=== PATIENT | male | born 1985 | race Caucasian/White ===

== ENCOUNTER 2020-08-21 19:52 | Emergency (ER) | payer BC, SELFPAY ==
[2020-08-21 19:53] VITALS: BP 145/81; PULSE 89; RESP 15; TEMP 36.7; O2SAT 98; BMI 32.1
--- NOTE | 2020-08-21 20:27 | HMH.EDWNDL ---
ED Disposition Clinical Impression: Laceration of finger Qualifiers: Encounter type: initial encounter Finger: index finger Damage to nail status: without damage Foreign body presence: without foreign body Laterality: left Qualified Code(s): S61.211A - Laceration without foreign body of left index finger without damage to nail, initial encounter Disposition: Home, Self-Care Condition on Discharge: Good Instructions: DI for Laceration Repair Additional Instructions: suture out 10 days and recheck if needed Referrals: PCP,No [Primary Care Provider] - - Critical Care Critical Care Time: No Attestation: On 08/21/20, the high probability of a clinically significant, sudden or life threatening deterioration of the following system(s) required my full and direct attention, intervention and personal management. The time I documented below is in addition to time spent performing reported procedures but includes the following listed in this critical care notation. Medical Decision Making - Medical Records Medical records reviewed: Yes: I reviewed the patient's medical records. - Ricardo Inquiry Pt receiving controlled substance: No Vital Signs: 08/21/20 19:53 Temperature 98.0 F Temperature Source Oral Pulse Rate [Left Brachial] 89 Respiratory Rate 15 Blood Pressure [Left Arm] 145/81 H Blood Pressure Mean [Left Arm] 102 Blood Pressure Source [Left Arm] Automatic Cuff Blood Pressure Position [Left Arm] Sitting 02 Sat by Pulse Oximetry 98 Oxygen Delivery Method Room Air Orders (Tests/Meds): ED MEDICATIONS Discontinued Medications Generic Name Dose Route Start Last Admin Trade Name Freq PRN Reason Stop Dose Admin Lidocaine HCl 20 ml 08/21/20 20:15 Lidocaine 1% 20ml Mdv SQ 08/21/20 20:16 ONCE ONE Wound/Laceration HPI - General Chief Complaint: Wound/Laceration Stated Complaint: Laceration Time Seen by Provider: 08/21/20 20:27 Mode of Arrival: Ambulatory Source of Information: Patient, Spouse, Medical Record Limitations: No Limitations Description of Symptoms (Recalled from ER Triage Doc. by RN): Laceration left 2nd finger - History of Present Illness HPI narrative: lac to lt seond finger Onset (ago): hour(s) Extremity Location: Left: hand Place: home Patient tetanus UTD: Yes Context: sharp object use Associated symptoms: none - Related Data Allergies Allergy/AdvReac Type Severity Reaction Status Date / Time No Known Drug Allergies Allergy Verified 08/21/20 20:07 [facility] History - Hepatitis A Screen Drug use history?: No High risk sexual behaviors?: No History of sexually transmitted infection?: No Currently employed?: No Childcare worker?: No Do you have indoor plumbing?: Yes Do you have electricity?: Yes Attestation statement:: This patient has been screened for Hepatitis A risk factors. I have reviewed the patient's past medical history: Yes Amputation: No Fractures: Yes - Social History Alcohol Intake: never Occupational Status: employed Household Members: spouse ROS Obtained: Yes All systems reviewed & no additional complaints - Constitutional Constitutional: Denies fever(s) - Eyes Eyes: Denies change in vision - ENT Ears, Nose, Mouth, and Throat: Denies sore throat - Cardiovascular Cardiovascular: Denies chest pain - Respiratory Respiratory: Denies dyspnea - Genitourinary Female Genitourinary: Denies hematuria - Musculoskeletal Musculoskeletal: Denies joint swelling - Integumentary/Breasts Skin/Breast: Denies rash - Neurologic Neurologic: Denies seizure-like activity Physical Exam - General General appearance: alert - Head Head exam: normocephalic - Eye Eye exam: Present: PERRL, EOMI - ENT ENT exam: Present: mucous membranes moist - Neck Neck exam: Present: trachea midline - Respiratory Respiratory exam: Absent: respiratory distress - Cardiovascular Cardiovascular exam: Present: regular rate
[2020-08-21 20:38] VITALS: BP 148/78; PULSE 88; RESP 16; TEMP 36.7; O2SAT 98
== END 2020-08-21 20:44 | disposition home or self-care (01) ==
PROVIDERS: Emergency Provider Emergency Medicine
DX: S61.211A Laceration without foreign body of left index finger without damage to nail, initial encounter (principal); W26.9XXA Contact with unspecified sharp object(s), initial encounter; Y92.019 Unspecified place in single-family (private) house as the place of occurrence of the external cause
CPT/HCPCS: 12001; 96372; 99282

== ENCOUNTER → 2023-02-18 10:51 | Outpatient (CLI) | payer BC, SELFPAY ==
[2023-02-18 11:15] LABS: Basophils # 0.1 K/mm3 (0-0.2); Basophils % 1.1 % (0.1-2.0); Eosinophils # 0.2 K/mm3 (0.0-0.4); Eosinophils % 3.2 % (0.1-12.0); Hemoglobin 16.5 g/dL (14.1-18.0); Lymphocytes # 1.8 K/mm3 (0.7-4.5); Lymphocytes % 25.3 % (10-50); Mean Corpuscular HGB Conc 33.6 g/dL (31.8-35.4); Mean Corpuscular Hemoglobin 27.6 pg (27.0-31.2); Mean Corpuscular Volume 82.1 fl (80-94); Mean Platelet Volume 9.4 fl (7.4-10.4); Monocytes # 0.4 K/mm3 (0.1-1.0); Monocytes % 5.4 % (1.7-9.3); Neutrophils # 4.5 K/mm3 (1.8-7.8); Neutrophils % 64.9 % (37.0-80.0); Platelet Count 242 K/mm3 (142-424); Red Blood Count 5.97 M/mm3 (4.60-6.20); Red Cell Distribution Width 13.9 % (11.5-17.5)
[2023-02-18 12:15] LABS: Alanine Aminotransferase 55 U/L (12-78); Albumin Level 4.5 g/dl (3.5-5.0); Albumin/Globulin Ratio 1.7 (1.1-1.8); Alkaline Phosphatase 66 U/L (38-126); Aspartate Amino Transferase 34 U/L (17-59); Bilirubin,Total 0.7 mg/dl (0.2-1.3); Blood Urea Nitrogen 15 mg/dl (9-20); Calcium 9.4 mg/dl (8.4-10.2); Carbon Dioxide 30 mmol/L (22.0-30.0); Chloride 106 mmol/L (98-107); Chol/HDL Ratio 4.8 (1-3.5); Cholesterol 176 mg/dl (140-200); Estimated Glomerular Filt Rate 85 ml/min (>60); GFR (African American) 103 ML/MIN (>60); Globulin 2.6 g/dL (1.3-3.2); Glucose 97 mg/dl (74-100); HDL Cholesterol 37 mg/dl (40-60); Sodium 143 mmol/L (136-145); Total Protein,Serum 7.1 g/dl (6.3-8.2); Triglycerides 102 mg/dl (30-150); VLDL Cholesterol 20 mg/dL (0-40)
[2023-02-18 12:25] LABS: Direct LDL Cholesterol 110.61 mg/dL (100-129)
[2023-02-18 12:46] LABS: Thyroid Stimulating Hormone 1.13 uIU/mL (0.465-4.68)
[2023-02-18 13:05] LABS: Vitamin B12 528 pg/mL (239-931)
== END ==
PROVIDERS: PCP Internal Medicine Adolescent Medicine; Visit Provider Physician Assistant
DX: Z00.00 Encounter for general adult medical examination without abnormal findings (principal); R42 Dizziness and giddiness; E55.9 Vitamin D deficiency, unspecified; E66.9 Obesity, unspecified; Z68.32 Body mass index [BMI] 32.0-32.9, adult; Z83.3 Family history of diabetes mellitus
CPT/HCPCS: 36415; 80053; 80061; 82306; 82607; 83036; 84443; 85025

== ENCOUNTER 2023-03-12 10:37 | Emergency (ER) | payer BC, SELFPAY ==
[2023-03-12] VITALS (11 sets, daily range): BP systolic 118–138; BP diastolic 79–94; PULSE 74–104; RESP 16–18; TEMP 37.1; O2SAT 96–99; BMI 30.1
[2023-03-12 11:46] LABS: Basophils # 0.1 K/mm3 (0-0.2); Basophils % 0.9 % (0.1-2.0); Eosinophils # 0.1 K/mm3 (0.0-0.4); Eosinophils % 1.3 % (0.1-12.0); Hematocrit 46.1 % (42.0-52.0); Lymphocytes # 1.2 K/mm3 (0.7-4.5); Lymphocytes % 16.7 % (10-50); Mean Corpuscular HGB Conc 34.7 g/dL (31.8-35.4); Mean Corpuscular Hemoglobin 28.3 pg (27.0-31.2); Mean Corpuscular Volume 81.5 fl (80-94); Mean Platelet Volume 9.8 fl (7.4-10.4); Monocytes # 0.8 K/mm3 (0.1-1.0); Monocytes % 11.7 % (1.7-9.3); Neutrophils # 4.9 K/mm3 (1.8-7.8); Neutrophils % 69.5 % (37.0-80.0); Platelet Count 172 K/mm3 (142-424); Red Blood Count 5.66 M/mm3 (4.60-6.20); Red Cell Distribution Width 13.7 % (11.5-17.5)
[2023-03-12 11:47] LABS: Chloride 99 mmol/L (98-107); Potassium 3.7 mmoL/L (3.5-5.1); Sodium 139 mmol/L (136-145)
[2023-03-12 11:50] LABS: Alanine Aminotransferase 38 U/L (12-78); Albumin Level 4.2 g/dl (3.5-5.0); Albumin/Globulin Ratio 1.2 (1.1-1.8); Alkaline Phosphatase 76 U/L (38-126); Anion Gap 12.7 mEq/L (5-15); Aspartate Amino Transferase 27 U/L (17-59); Bilirubin,Total 1.2 mg/dl (0.2-1.3); Blood Urea Nitrogen 18 mg/dl (9-20); Carbon Dioxide 31 mmol/L (22.0-30.0); Creatinine Clearance Estimated 130 mL/min (50-200); Estimated Glomerular Filt Rate 76 ml/min (>60); GFR (African American) 92 ML/MIN (>60); Globulin 3.4 g/dL (1.3-3.2); Total Protein,Serum 7.6 g/dl (6.3-8.2)
[2023-03-12 11:51] LABS: Calcium 9.5 mg/dl (8.4-10.2); Glucose 104 mg/dl (74-100)
[2023-03-12 12:33] LABS: Occult Blood,Stool Positive (Negative)
--- NOTE | 2023-03-12 12:45 | HMH.EDGENADL ---
Discharge Plan Disposition Patient Disposition: Home, Self-Care Prescriptions Prescriptions: New ondansetron 4 mg tablet,disintegrating 4 mg PO Q6H PRN (Reason: nausea and vomiting) 5 Days Qty: 20 0RF Referrals Follow up/Referrals: Jaclyn Mendoza PA [Primary Care Provider] - See instructions Activity Restrictions/Add. Instructions Additional Instructions/Restrictions: You have colitis secondary to Campylobacter infection. This should be self-limiting please stay hydrated as discussed please return with evidence or concerns for dehydration or any other concerns. Clinical Impressions Clinical Impression: Campylobacter diarrhea, Blood in stool, Abdominal pain Instructions Patient Instructions: DI for Acute Abdominal Pain Discharge ED Provider: David Toussaint General Adult HPI <David Toussaint MD - Last Filed: 03/12/23 16:02> General Chief complaint: Abdominal Pain Stated complaint: blood in stool,diarrhea,dizzy Time Seen by Provider: 03/12/23 12:33 Mode of Arrival: Ambulatory Source of Information: Patient Limitations: No Limitations Description of Symptoms (Recalled from ER Triage Doc. by RN): patient has been having abd pain and bloody diarrhea since night, denies soa or cp and alox4. pt complains of nausea as well History of Present Illness HPI narrative: Patient is a 37-year-old male with no pertinent past medical history presents emergency department for evaluation of abdominal pain and bloody diarrhea. History is obtained by patient and at bedside. Onset was acute, occurring . Patient ate a frozen microwavable meal of rice. He has since had bloody diarrhea multiple episodes per day since, there is associated diffuse abdominal pain which is worse in the epigastric region. Patient has associated nausea and nonbloody vomiting. Due to persistent symptoms he presents here for continued valuation. Patient does state that he does have episodes of this that seemingly occur with no acute cause that last approximately 48 hours with spontaneous resolution occurring 1-3 times a year. Patient has had a fever high as 103 at home has been responsive to ibuprofen. Related Data Previous Rx's Medication Instructions Recorded ondansetron 4 mg disintegrating 4 mg PO Q6H PRN nausea and 03/12/23 tablet vomiting 5 days #20 tabs Allergies Allergy/AdvReac Type Severity Reaction Status Date / Time No Known Drug Allergies Allergy Verified 08/21/20 20:07 PFSH <David Toussaint MD - Last Filed: 03/12/23 16:02> [facility] Disclaimer: The information contained in this section may have been updated after the patient was seen, as this information can be updated by other users. Medical History (Updated 03/12/23 @ 18:36 by Esequiel Shearer MD) Clavicle fracture Surgical History (Updated 03/12/23 @ 11:27 by Leif Schmitz RN) [place] teeth removed Social History Smoking Status: Never smoker second hand exposure: No alcohol intake: never current occupational status: employed Travel in the last 8 weeks: None household members: spouse current occupation: [employer] current occupational exposures/hazards: No caffeine: Yes <David Toussaint MD - Last Filed: 03/12/23 16:02> ROS Obtained: Yes Systems reviewed as appropriate & no additional complaints except as documented Physical Exam <David Toussaitn MD - Last Filed: 03/12/23 16:02> General General appearance: alert and in no apparent distress Head Head exam: atraumatic and normocephalic Eye Eye exam: Present PERRL and EOMI ENT ENT exam: Present mucous membranes moist Neck Neck exam: Present normal inspection Chest Chest inspection: Present normal inspection and symmetric chest wall rise Respiratory Respiratory exam: Present normal lung sounds bilaterally; Absent respiratory distress Cardiovascular Cardiovascular exam: Present regular rate and normal rhythm Abdominal Exam Abdominal exam: Present soft, disten
--- NOTE | 2023-03-12 12:49 | PC.NURSE ---
notified lab of new orders on pt
[2023-03-12 12:58] LABS: Lipase 33 U/L (23-300)
--- NOTE | 2023-03-12 14:07 | CT_ITS ---
PROCEDURE INFORMATION: Exam: CT Abdomen And Pelvis With Contrast Exam date and time: 03/12/2023 2:28 PM Age: 37 years old Clinical indication: Abdominal pain; Additional info: Diffuse pain, bloody diarrhea TECHNIQUE: Imaging protocol: Computed tomography of the abdomen and pelvis with contrast. Radiation optimization: All CT scans at this facility use at least one of these dose optimization techniques: automated exposure control; mA and/or kV adjustment per patient size (includes targeted exams where dose is matched to clinical indication); or iterative reconstruction. Contrast material: ISOVUE; Contrast volume: 75 ml; Contrast route: IV; REPORTING DATA: Count of CT and Cardiac NM exams in prior 12 months: This patient has received 0 known CTs and 0 known cardiac nuclear medicine studies in the 12 months prior to the current study. COMPARISON: No relevant prior studies available. FINDINGS: Lungs: Lung bases are clear. Liver: There is fatty infiltration throughout the liver which is otherwise unremarkable. Gallbladder and bile ducts: Gallbladder is unremarkable. No calcified gallstones detected. Bile ducts are not dilated. Pancreas: Unremarkable. Main pancreatic duct is not significantly dilated. Spleen: Spleen is enlarged measuring 17 cm in greatest dimension. Adrenal glands: Normal. No mass. Kidneys and ureters: Small cortical cyst midpole left kidney likely benign based on density readings. Kidneys are otherwise unremarkable. Stomach and bowel: Mild diffuse inflammatory bowel wall thickening with mural stratification and adjacent engorgement of the pericolonic vasculature involving the entire large bowel consistent with diffuse colitis. Trace pelvic free fluid likely secondary to the bowel pathology. Appendix: No evidence of acute appendicitis. Intraperitoneal space: Unremarkable. No free air. No significant fluid collection. Vasculature: Unremarkable. No abdominal aortic aneurysm. Lymph nodes: Scattered small mesenteric lymph nodes within the mid abdomen extending to the right lower quadrant presumed either long-standing or reactive in nature. Urinary bladder: Unremarkable as visualized. Reproductive: Unremarkable as visualized. Bones/joints: Long-standing pars defects (spondylolysis) L5-S1 with mild grade 1 spondylolisthesis. Soft tissues: Soft tissues are unremarkable. IMPRESSION: 1. Findings consistent with diffuse colitis. Consider infectious colitis such as C difficile colitis. 2. Moderate splenomegaly. 3. Fatty infiltration of the liver. 4. Mild grade 1 isthmic spondylolisthesis L5-S1. COMMENTS: Consistent with the [employer]'s Incidental Findings Committee white paper (J Am Radha Radiol 2018): Any incidental renal lesion less than 1 cm or classified as too small to characterize, or any incidental cystic renal lesion characterized as simple-appearing, is likely benign. No follow-up imaging is recommended for these lesions per consensus recommendations based on imaging criteria.
[2023-03-12 14:22] LABS: Microscopic, Urine URINE MICROSCOPIC (MICROSCOPIC)
--- NOTE | 2023-03-12 14:23 | PC.NURSE ---
rounded on patient; patient ambulated to bathroom nothing else needed at this time.
--- NOTE | 2023-03-12 14:24 | PC.NURSE ---
pt gone to rad
--- NOTE | 2023-03-12 14:33 | PC.NURSE ---
pt return from radiology
[2023-03-12 14:42] LABS: Appearance,Urine CLEAR (Clear); Blood, Urine TRACE-I (Negative); Color,Urine YELLOW (Yellow); Glucose,Urine (UA) Negative (Negative); Ketones,Urine Negative (Negative); Leukocyte Esterase,Urine Negative (Negative); Nitrate,Urine Negative (Negative); PH,Urine 5.5 (5.0-8.5); Protein,Urine Negative (Negative); Urobilinogen,Urine 0.2 EU/dl (0.2)
[2023-03-12 14:44] LABS: Bilirubin,Urine 1+ (Negative)
--- NOTE | 2023-03-12 14:52 | PC.NURSE ---
Rounded on patient and family member and updated them on POC. Nothing needed at this time. Call quintero within reach of patient
[2023-03-12 15:01] LABS: Squamous Epithelial Cell,Urine Occasional #/hpf (0-5)
--- NOTE | 2023-03-12 15:20 | PC.NURSE ---
Provided patient bottle of water per .
--- NOTE | 2023-03-12 16:05 | PC.NURSE ---
pt in restroom
[2023-03-12 16:21] LABS: Adenovirus F 40/41, stool Not Detected (NotDetected); Astrovirus Not Detected (NotDetected); Clostridium Difficile A/B, PCR Not Detected (NotDetected); Cryptosporidium Not Detected (NotDetected); Cyclospora Cayetanesis Not Detected (NotDetected); Entamoeba histolytica Not Detected (NotDetected); Enteroaggregative E coli Not Detected (NotDetected); Enteropathogenic E coli Not Detected (NotDetected); Enterotoxigenic E coli Not Detected (NotDetected); Giardia lamblia Not Detected (NotDetected); Norovirus Not Detected (NotDetected); Plesimonas Shigalloides, PCR Not Detected (NotDetected); Rotavirus A Not Detected (NotDetected); Salmonella, PCR Not Detected (NotDetected); Sapovirus Not Detected (NotDetected); Shiga-like toxin E coli Not Detected (NotDetected); Shigella Enterovasive E coli Not Detected (NotDetected); Vibrio Cholerae Not Detected (NotDetected); Vibrio, PCR Not Detected (NotDetected); Yersinia Entercolitica, PCR Not Detected (NotDetected)
--- NOTE | 2023-03-12 17:40 | PC.NURSE ---
contacted lab to check on status of diarrhea panel, lab states will be approx 40 minutes until results
[2023-03-12 18:22] LABS: Campylobacter Detected (NotDetected)
--- NOTE | 2023-03-12 18:31 | PC.NURSE ---
notified ER MD Shearer of diarrhea panel results
== END 2023-03-12 18:46 | disposition home or self-care (01) ==
PROVIDERS: Emergency Provider Emergency Medicine; PCP Physician Assistant
DX: A04.5 Campylobacter enteritis (principal); R10.13 Epigastric pain; K92.1 Melena
CPT/HCPCS: 74177; 80053; 81001; 82272; 83690; 85025; 87507; 96361; 96374; 96375; 99285; G0328; J2405; Q9967

== ENCOUNTER 2024-02-19 21:44 | Emergency (ER) | payer BC, SELFPAY ==
[2024-02-19 21:46] VITALS: BP 144/92; PULSE 98; RESP 18; TEMP 37.1; O2SAT 97; BMI 32.8
--- NOTE | 2024-02-19 22:00 | ED_ITS ---
<Statement entered by David Toussaint MD - 02/19/24 23:22> I was consulted by the HOLDEN, and we discussed the complexity of the problems being addressed. I approved the treatment and management plan for this patient's care in the emergency department, thus performing a substantive portion of the medical decision making. David Toussaint MD Discharge Plan Disposition Patient Disposition: Home, Self-Care Condition: Good Chief Complaint: Urogenital-Male Prescriptions Prescriptions: No Action ondansetron 4 mg tablet,disintegrating 4 mg PO Q6H PRN (Reason: nausea and vomiting) 5 Days Qty: 20 0RF Referrals Follow up/Referrals: Jaclyn Mendoza PA [Primary Care Provider] - See instructions Julio Bee MD [Staff Physician] - See instructions (Left testicular pain, hydrocele and varicocele) Activity Restrictions/Add. Instructions Additional Instructions/Restrictions: Continue taking Tylenol alternating every 4 hours with Motrin. Follow-up with your PCP as needed. Return to the ER for any worsening signs or symptoms. Please call in the morning to make your appointment with urology. Clinical Impressions Clinical Impression: Left varicocele, Left testicular pain Instructions Patient Instructions: DI for Varicocele Discharge ED Provider: David Toussaint General Adult HPI General Chief complaint: Urogenital-Male Stated complaint: Pain left scrotum Time Seen by Provider: 02/19/24 22:00 Mode of Arrival: Ambulatory Source of Information: Patient Limitations: No Limitations Description of Symptoms (Recalled from ER Triage Doc. by RN): Patient reports left testicle pressure/swelling since last night around 18:00. Pt denies injury. Patient reports this morning it felt a little bit better but this evening has returned. Patient states pressure radiates to his left groin area. History of Present Illness HPI narrative: Patient presents for evaluation of left testicle pain. Patient reports that he began having discomfort in his left testicle yesterday evening. There was no provoking event no trauma of sexual activity involved. It is worsened throughout the day to the point where he is uncomfortable in any position with no relieving factors. Pain does not radiate anywhere. He has no fever chest pain shortness of breath fever chills hemoptysis hematochezia melena nausea vomit diarrhea. Patient denies discharge from his urethra. Patient has normal bowel movements. Related Data Previous Rx's Medication Instructions Recorded ondansetron 4 mg disintegrating 4 mg PO Q6H PRN nausea and 03/12/23 tablet vomiting 5 days #20 tabs Allergies Allergy/AdvReac Type Severity Reaction Status Date / Time No Known Drug Allergies Allergy Verified 08/21/20 20:07 [facility] Disclaimer: The information contained in this section may have been updated after the patient was seen, as this information can be updated by other users. Medical History (Updated 02/19/24 @ 23:17 by CASSANDRA Monet) Clavicle fracture Surgical History (Updated 03/12/23 @ 11:27 by Leif Schmitz RN) [facility] teeth removed Social History Smoking Status: Never smoker second hand exposure: No alcohol intake: never current occupational status: employed Travel in the last 8 weeks: None household members: spouse current occupation: [employer] current occupational exposures/hazards: No caffeine: Yes ROS Obtained: Yes Systems reviewed as appropriate & no additional complaints ex cept as documented Physical Exam General General appearance: alert and in no apparent distress Respiratory Respiratory exam: Present normal lung sounds bilaterally Cardiovascular Cardiovascular exam: Present regular rate and normal rhythm exam: Present normal inspection, testicular tenderness (Left) and other (No indirect or direct hernias felt, no scrotal edema or erythema or induration. No feeling of the bag of worms .); Absent urethral discharge or scrotal swelling Neurological Exam Neurological exam: Present alert and oriented X3 Skin Skin exam: Present dry Medical Decision Making Ricardo Inquiry Pt receiving controlled substance: No Vital Signs: 02/19/24 21:46 Temperature 98.7 F Temperature Source Oral Pulse Rate [Right Radial] 98 H Respiratory Rate 18 Blood Pressure [Right Arm] 144/92 H Blood Pressure Mean [Right Arm] 109 Blood Pressure Source [Right Arm] Automatic Cuff Blood Pressure Position [Right Arm] Supine 02 Sat by Pulse Oximetry 97 Oxygen Delivery Method Room Air Lab Data Lab results reviewed: Yes I reviewed the patient's lab results. Lab Results 02/19/24 22:35: Urine Color Yellow, Urine Appearance Clear, Urine pH 6.5, Ur Specific [place] 1.020, Urine Protein Negative, Urine Glucose (UA) Negative, Urine Ketones Negative, Urine Blood Negative, Urine Nitrate Negative, Urine Bilirubin Negative, Urine Urobilinogen 1.0, Ur Leukocyte Esterase Negative, Urine RBC None, Urine WBC None, Ur Squamous Epith Cells Occasional, Urine Bacteria None Orders (Tests/Meds): ED MEDICATIONS Discontinued Medications Generic Name Dose Route Start Last Admin Trade Name Helen PRN Reason Stop Dose Admin Acetaminophen 1,000 mg 02/19/24 22:04 02/19/24 22:10 Acetaminophen 500mg Tab PO 02/19/24 22:05 1,000 mg ONCE ONE Administration Ceftriaxone Sodium 1 gm 02/19/24 22:59 02/19/24 23:10 Ceftriaxone 1gm Vial IM 02/19/24 23:00 1 gm ONCE ONE Administration Doxycycline Hyclate 100 mg 02/19/24 23:01 02/19/24 23:10 Doxycycline Hycl 100 Mg Tablet PO 02/19/24 23:02 100 mg ONCE ONE Administration Ibuprofen 600 mg 02/19/24 22:04 02/19/24 22:10 Ibuprofen 600 Mg Tablet PO 02/19/24 22:05 600 mg ONCE ONE Administration Lidocaine HCl 0 ml 02/19/24 22:59 02/19/24 23:09 Lidocaine 1% 5ml Pf Vial IM 02/19/24 23:00 2 ml ONCE ONE Administration ORDERS Category Date Time Status UA [Urinalysis and Microscopic] Stat Lab 02/19/24 22:35 Completed US scrotum [US Testicular] Stat Ultrasound 02/19/24 22:04 Completed Medical Decision Narrative: In summary patient is a 38-year-old male who presents to the emergency department for evaluation of left testicle pain. Patient is hemodynamically stable upon arrival, afebrile. Zickel exam is remarkable for left testicle tenderness with no induration scrotum is normal with no erythema or cellulitis no inguinal hernias felt tenderness appears to be in the epididymis not in the testicle itself. He has normal testicular lie.. Differential diagnosis includes epididymitis versus testicular torsion etc. Initial workup will be conducted with hematologic labs urinalysis and testicular ultrasound. Initial interventions include Toradol Tylenol. Initial workup interpreted by me and laboratory investigations are nonactionable and urinalysis is bland. Ultrasound shows no evidence of torsion or epididymitis and does show a small hydrocele and varicocele on the left. Given this patient will be referred to urology for close follow-up with Dr. Bee. Patient was given initially a dose of Rocephin and doxycycline for possible epididymitis but will not continue that. Critical Care Critical Care Time Critical Care Time: No
--- NOTE | 2024-02-19 22:04 | US_ITS ---
PROCEDURE INFORMATION: Exam: US Scrotum and US Duplex Artery and Vein, Scrotum, Complete Exam date and time: 02/19/2024 10:30 PM Age: 38 years old Clinical indication: Scrotum pain; Additional info: L testicle pain TECHNIQUE: Imaging protocol: Real-time ultrasound of the scrotum. Real-time duplex ultrasound scan of the arterial and venous flow of the scrotum with B-mode, color Doppler flow and spectral waveform analysis. Complete exam. Duplex exam was performed to evaluate for torsion and other vascular conditions. COMPARISON: No relevant prior studies available. FINDINGS: Right testicle: Normal echogenicity. No mass. No torsion. Left testicle: Normal echogenicity. No mass. No torsion. Epididymides: Unremarkable. Extratesticular spaces: Small LEFT hydrocele. LEFT varicocele. Scrotum/soft tissues: Unremarkable. IMPRESSION: No definite sonographic evidence of testicular torsion.
[2024-02-19] MEDS: ACETAMINOPHEN 500MG TAB 1000 MG PO (22:10)
[2024-02-19] MEDS: IBUPROFEN 600 MG TABLET PO (22:10)
[2024-02-19 22:39] LABS: Microscopic, Urine URINE MICROSCOPIC (MICROSCOPIC)
[2024-02-19 22:41] LABS: Appearance,Urine CLEAR (Clear); Bilirubin,Urine Negative (Negative); Blood, Urine Negative (Negative); Color,Urine YELLOW (Yellow); Glucose,Urine (UA) Negative (Negative); Ketones,Urine Negative (Negative); Leukocyte Esterase,Urine Negative (Negative); Nitrate,Urine Negative (Negative); PH,Urine 6.5 (5.0-8.5); Protein,Urine Negative (Negative)
[2024-02-19 22:54] LABS: Squamous Epithelial Cell,Urine Occasional #/hpf (0-5)
[2024-02-19] MEDS: LIDOCAINE 1% 5ML PF VIAL IM (23:09)
[2024-02-19] MEDS: DOXYCYCLINE HYCL 100 MG TABLET PO (23:10)
[2024-02-19] MEDS: cefTRIAXone 1GM VIAL 1 GM IM (23:10)
[2024-02-19 23:40] VITALS: BP 120/84; PULSE 80; RESP 20; TEMP 37.1; O2SAT 99
== END 2024-02-19 23:43 | disposition home or self-care (01) ==
PROVIDERS: Emergency Provider Emergency Medicine; PCP Physician Assistant
DX: N50.812 Left testicular pain (principal); I86.1 Scrotal varices
CPT/HCPCS: 76870; 81001; 96372; 99284; J0696

== ENCOUNTER 2024-02-26 08:45 | Outpatient (CLI) | payer BC, SELFPAY ==
[2024-02-26 15:57] LABS: Microscopic, Urine URINE MICROSCOPIC (MICROSCOPIC)
[2024-02-26 20:25] LABS: Appearance,Urine CLOUDY (Clear); Bilirubin,Urine Negative (Negative); Blood, Urine Negative (Negative); Color,Urine YELLOW (Yellow); Glucose,Urine (UA) Negative (Negative); Ketones,Urine Negative (Negative); Leukocyte Esterase,Urine Negative (Negative); Nitrate,Urine Negative (Negative); Protein,Urine Negative (Negative); Specific Gravity, Urine >= 1.030 (1.005-1.030); Urobilinogen,Urine 0.2 EU/dl (0.2)
[2024-02-26 20:49] LABS: Amorphous Sediment,Urine 2+ /lpf; Bacteria,Urine 1+ /lpf; Calcium Oxalate Crystals,Urine 1+ /lpf; WBC,Urine Occasional #/hpf (0-3)
== END 2024-02-26 23:59 | disposition home or self-care (01) ==
LOC: LAB.DROPOF 02-27 07:54
PROVIDERS: PCP Urology; Visit Provider Urology
DX: N45.1 Epididymitis (principal)
CPT/HCPCS: 81001